=== PATIENT | female | born 1995 | race Two or more races ===

== ENCOUNTER 2018-04-28 02:35 | Emergency (ER) | payer OTHER ==
[~2018-04-28] VITALS: Ht 157.5 cm; Wt 52.2 kg
[2018-04-28] MEDS ORDERED: PEPCID AC20 MG PO (06:58)
[2018-04-28] MEDS ORDERED: ZOFRAN ODT4 MG SL (06:58)
[2018-04-28] MEDS ORDERED: PROTONIX20 MG PO (06:58)
== END 2018-04-28 07:49 | disposition home or self-care (01) ==
LOC: ER 02:35
DX: K29.00 Acute gastritis without bleeding (principal); E86.0 Dehydration

== ENCOUNTER 2018-04-30 12:50 | Emergency (ER) | payer OTHER ==
[~2018-04-30] VITALS: Ht 152.4 cm; Wt 54.4 kg
[~2018-04-30 12:50] MED LIST: PEPCID AC20 MG PO; PROTONIX20 MG PO; ZOFRAN ODT4 MG SL
[2018-04-30] MEDS ORDERED: KETO10TA2 PO (19:16)
[2018-04-30] MEDS ORDERED: LEVSIN/SL0.125 MG SL (19:16)
== END 2018-04-30 19:30 | disposition home or self-care (01) ==
LOC: ER 12:50
DX: K29.50 Unspecified chronic gastritis without bleeding (principal)